=== PATIENT | male | born 1995 | race Two or more races ===

== ENCOUNTER 2024-03-03 12:46 | Outpatient (AMB) | payer OTHER, SELFPAY ==
[2024-03-03 12:48] VITALS: BP 120/82; BMI 37.1
--- NOTE | 2024-03-03 12:48 | A.OFFPC_ITS ---
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 Accompanied by: Staff Allergies No Known Allergies Allergy (Verified 03/03/24 13:11) Medication List - Last Reconciled 03/03/24 by Lindsey Mayberry MD acetaminophen ER (Tylenol 8 Hour) 650 mg PO Q12H PRN 30 days benztropine 2 mg PO BID chlorpromazine 0 mg PO chlorpromazine mg PO docusate sodium 100 mg PO BID 30 days oxcarbazepine 300 mg PO TID propranolol 20 mg PO BID quetiapine 0 mg PO Tobacco use date assessed: 03/03/24 Dental Screening Dental Screen Date: 03/03/24 Did you have a dental visit in the last 12 months?: No Did you have a dental problem in the last 6 months where you did not have access to dental care?: No Was dental information given to patient?: No HPI HPI Comments History of Present Illness Details This is a 28-year-old male with autism and mood disorder that comes accompanied by staff member from home that he lives for his physical exam. Mood disorder follow by Psychiatry and has been stable with medications. He has moderate developmental delay but is able to bathe himself and dress himself. No chest pain or shortness of breath. No change in bowel or bladder habits. FOR[facility]LY [facility], [facility] Medical History Encounter for physical examination Autism Mood disorder Obesity Constipation by delayed colonic transit Surgical History No pertinent past surgical history Family History Mother No problems noted. Social History Housing: Assisted Living Facility Alcohol intake: never Patient Tobacco Use Status: Never used Tobacco e-Cigarette/Vaping Use: Never Used Second Hand Smoke Exposure: No service: No Current occupational status: disabled Cognitive needs: No Hearing needs: No Vision needs: No Questionnaire PHQ-9 Over the last 2 weeks, how often have you been bothered by any of the following problems? 1. Little interest or pleasure in doing things: not at all 2. Feeling down, depressed, or hopeless: not at all 3. Trouble falling or staying asleep, or sleeping too much: not at all 4. Feeling tired or having little energy: not at all 5. Poor appetite or overeating: not at all 6. Feeling bad about yourself - or that you are a failure or have let yourself or your family down: not at all 7. Trouble concentrating on things, such as reading the newspaper or watching television: not at all 8. Moving or speaking so slowly that other people could have noticed. Or the opposite - being so fidgety or restless that you have been moving around a lot more than usual: not at all 9. Thoughts that you would be better off or of hurting yourself in some way: not at all Total score: 0 Depression Screening Interpretation: Negative Depression Screening Done: Yes 52460 - PHQ-9 Billing: Yes Source: Developed by Drs. Hieu Juarez, Ann Marie Talavera, Rodo Cordero and colleagues, with an educational lennox from [employer]. Thrive Questionnaire Date Thrive assessed: 03/03/24 I am a: Parent/Caregiver What is your living situation today?: I have a steady place to live Within the past 12 months, did the food you bought not last and you didn't have the money to get more?: Never true Within the past 12 months, did you worry whether your food would run out before you got money to buy more?: Never true Do you have trouble paying for medicines?: No Do you have trouble getting transportation to medical appointments?: No Do you have trouble paying your heating and electricity bill?: No Do you have trouble taking care of your child, family member or friend?: No Do you have trouble with day-to-day activities such as bathing, preparing meals, shopping, managing finances, etc.?: Yes Are you currently unemployed and looking for a job?: No Are you interested in more education?: No Please select the resources that you would like help with: None Currently or been in a relationship where the following occur: no concerns reported THRIVE Score: 0 AUDIT C Alcohol Use Questionnaire (AUDIT-C) 1. How often do you have a drink containing alcohol?: Never Total Score: 0 EMILY-7 AMB Questionnaire EMILY-7 Date EMILY - 7 assessed: 03/03/24 Feeling nervous, anxious, or on edge: 1 = Several days Not being able to stop or control worryin = Not at all Worrying too much about different things: 0 = Not at all Trouble relaxin = Not at all Being so restless that it is hard to sit still: 0 = Not at all Becoming easily annoyed or irritable: 1 = Several days Feeling afraid as if something awful might happen: 0 = Not at all Total EMILY-7 score (0-4 normal; 5-9 mild; 10-14 moderate; 15-21 severe): 2 Source: Developed by Drs. Hieu Juarez, Ann Marie Talavera, Rodo Cordero and colleagues, with an educational lennox from [employer]. EMILY-7 Assessment Billing EMILY-7 Assessment Tool: EMILY-7 Assessment 73168 Review of Systems Const All systems reviewed & are unremarkable except as noted in HPI and below Eyes Reports no additional complaints, Denies change in vision and Denies other visual disturbances Card Denies chest pain at rest, Denies chest pain with activity, Denies edema, Denies irregular heart rhythm, Denies claudication, Denies dyspnea, Denies dyspnea on exertion, Denies orthopnea, Denies paroxysmal nocturnal dyspnea and Denies slow heart rate Resp Denies cough, Denies dyspnea and Denies dyspnea on exertion GI Denies abdominal pain, Denies change in bowel habits, Denies excessive flatus, Denies nausea and Denies vomiting Denies urinary hesitancy, Denies urinary incontinence and Denies urinary urgency Musc Denies abnormal gait, Denies atrophy, Denies deformity and Denies limited range of motion Skin/Breast Denies bleeding lesions, Denies changing lesions and Denies rash Neuro Denies abnormal gait, Denies behavioral changes, Denies confusion and Denies lack of coordination Psych Denies behavioral changes and Denies confusion Physical exam (Primary Care) Vital Signs: Last Vital Signs BP 120/82 03/03/24 12:48 BMI result Body Mass Index 37.1 Tobacco/Smoking Status: Tobacco use Status Tobacco use date assessed 03/03/24 03/03/24 12:56 Patient Tobacco Use Status Never used Tobacco 03/03/24 12:56 e-Cigarette/Vaping Use Never Used 03/03/24 12:56 PHQ-9: PHQ-9 Score PHQ-9: Total score 0 03/03/24 13:16 Depression Screening Interpretation: Negative Thrive Assessment: Date of Thrive Assessment Date Thrive assessed 03/03/24 03/03/24 12:56 Currently or been in a relationship where the following occur: no concerns reported Const General: No confusion Orientation/consciousness: No confusion HENMT Head: Yes normal to inspection, Yes normocephalic and Yes atraumatic Ears: external ears normal Eyes General: appearance normal, both eyes and all related structures Eyelids: Yes eyelids normal Conjunctivae: conjunctivae normal Neck Neck: Yes normal visual inspection and Yes supple Resp Effort & Inspection: normal respiratory effort Auscultation: clear to auscultation bilaterally Cardio Jugular venous distension: no JVD Rate: regular rate Rhythm: regular rhythm Heart sounds: S1 normal heart sound present and S2 normal heart sound present GI Inspection: Yes normal to inspection Palpation (GI): Soft to palpation and nontender Auscultation: normal bowel sounds Skin General skin exam: no rashes or lesions noted Neuro General: no focal motor deficits and No confusion Extrem General: Yes full ROM Psych Appearance: grossly normal Assessment and Plan Assessment & Plan (1) Encounter for physical examination: Code(s): Z00.00 - Encounter for general adult medical examination without abnormal findings Plan: Repeat in a year. (2) Mood disorder: Code(s): F39 - Unspecified mood [affective] disorder Plan: Continue ox carbamazepine. Follow-up with psychiatry. Orders: Orders Comprehensive [place]. Panel Fast Today Z00.00 - Encounter for general adult medical examination without abnormal findings Lipid Panel Today Z00.00 - Encounter for general adult medical examination without abnormal findings Coding Level of Care Code Est Pt Prev Care 18-39y(75428) Diagnoses Encounter for physical examination Z00.00 Mood disorder F39 Additional Codes EMILY-7 Assessment Billing - EMIYL-7 Assessment Tool: EMILY-7 Assessment 43329 ([id number]) Time Spent (min) 33
== END 2024-03-03 13:28 | disposition home or self-care (01) ==
PROVIDERS: Visit Provider Internal Medicine
DX: Z00.00 Encounter for general adult medical examination without abnormal findings (principal); F84.0 Autistic disorder; F39 Unspecified mood [affective] disorder
CPT/HCPCS: 99395

== ENCOUNTER 2024-05-20 09:58 | Outpatient (REF) | payer OTHER, SELFPAY ==
[2024-05-20 11:13] LABS: Alanine Aminotransferase 127 U/L (0-40); Albumin Level 4.7 g/dL (3.5-5.0); Alkaline Phosphatase 78 U/L (39-117); Anion Gap 14 (12-20); Aspartate Amino Transferase 75 U/L (5-37); Bilirubin Total 0.4 mg/dL (0.0-1.0); Blood Urea Nitrogen 13 mg/dL (9-16); Calcium 9.5 mg/dL (8.4-10.2); Carbon Dioxide 23 mmol/L (22-29); Chloride 105 mmol/L (96-108); Cholesterol 201 mg/dL (<200); Estimated Glomerular Filt Rate > 60; Glucose Fasting 89 mg/dL (60-99); HDL Cholesterol 31 mg/dL (>40); LDL Cholesterol Calculated 121 mg/dL (<100); Potassium 4.2 mmol/L (3.3-5.1); Sodium 138 mmol/L (135-145); Total Protein 7.9 g/dL (6.5-8.0); Triglycerides 248 mg/dL (<150)
== END 2024-05-20 09:59 | disposition home or self-care (01) ==
LOC: HO.LAB 09:58
PROVIDERS: PCP Internal Medicine; Visit Provider Internal Medicine
DX: Z00.00 Encounter for general adult medical examination without abnormal findings (principal); R74.01 Elevation of levels of liver transaminase levels
CPT/HCPCS: 36415; 80053; 80061

== ENCOUNTER 2025-03-15 10:01 | Outpatient (AMB) | payer OTHER, SELFPAY ==
--- NOTE | 2025-03-15 10:12 | A.OFFPC_ITS ---
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 Accompanied by: staff Allergies No Known Allergies Allergy (Verified 03/15/25 10:31) Medication List - Last Reconciled 03/15/25 by Lindsey Mayberry MD acetaminophen ER (Tylenol 8 Hour) 650 mg PO Q12H PRN 30 days benztropine 2 mg PO BID chlorpromazine 0 mg PO chlorpromazine mg PO docusate sodium 100 mg PO BID 30 days oxcarbazepine 300 mg PO TID propranolol 20 mg PO BID quetiapine 0 mg PO Tobacco use date assessed: 03/15/25 Dental Screening Dental Screen Date: 03/03/24 Did you have a dental visit in the last 12 months?: No Did you have a dental problem in the last 6 months where you did not have access to dental care?: No Was dental information given to patient?: No HPI HPI Comments History of Present Illness Details The patient is a 29-year-old male presenting for a routine physical examination and health maintenance. His medical history includes Autism and a Mood Disorder, both managed with psychiatric input. He has a BMI of 38, which classifies him as having Class II obesity, signifying the need for weight control measures. Medications include acetaminophen (Tylenol), among others. No known drug allergies are noted. The patient's Tdap vaccination was last administered in 2013, necessitating a booster to maintain immunization schedules. His blood pressure readings have historically been good, and he reports no smoking or alcohol intake, contributing positively to his cardiovascular status. The patient experiences c onstipation but has not required surgical interventions. Laboratory assessments previously noted elevated cholesterol, and there is a plan to undertake fasting blood work for continued monitoring. - Administer Tdap booster to maintain up -to-date vaccination status. - Repeat fasting blood work with focus o n lipid profile to monitor elevated cholesterol levels. - Emphasize weight management strategies to address Class II obesity. [facility] Medical History Encounter for physical examination Autism Mood disorder Obesity Constipation by delayed colonic transit Surgical History No pertinent past surgical history Family History Mother No problems noted. Social History Housing: Assisted Living Facility Alcohol intake: never Patient Tobacco Use Status: Never used Tobacco e-Cigarette/Vaping Use: Never Used Second Hand Smoke Exposure: No service: No Current occupational status: disabled Cognitive needs: No Hearing needs: No Vision needs: No Questionnaire PHQ-9 Over the last 2 weeks, how often have you been bothered by any of the following problems? 1. Little interest or pleasure in doing things: not at all 2. Feeling down, depressed, or hopeless: not at all 3. Trouble falling or staying asleep, or sleeping too much: not at all 4. Feeling tired or having little energy: not at all 5. Poor appetite or overeating: not at all 6. Feeling bad about yourself - or that you are a failure or have let yourself or your family down: not at all 7. Trouble concentrating on things, such as reading the newspaper or watching television: not at all 8. Moving or speaking so slowly that other people could have noticed. Or the opposite - being so fidgety or restless that you have been moving around a lot more than usual: not at all 9. Thoughts that you would be better off or of hurting yourself in some way: not at all Total score: 0 Depression Screening Interpretation: Negative Depression Screening Done: Yes 86247 - PHQ-9 Billing: Yes Source: Developed by Drs. Hieu Juarez, Ann Marie Talavera, Rodo Cordero and colleagues, with an educational lennox from [employer]. Thrive Questionnaire Date Thrive assessed: 03/15/25 I am a: Patient What is your living situation today?: I choose not to answer this question Within the past 12 months, did the food you bought not last and you didn't have the money to get more?: I choose not to answer this question Within the past 12 months, did you worry whether your food would run out before you got money to buy more?: I choose not to answer this question Do you have trouble paying for medicines?: I choose not to answer this question Do you have trouble getting transportation to medical appointments?: I choose not to answer this question Do you have trouble paying your heating and electricity bill?: I choose not to answer this question Do you have trouble taking care of your child, family member or friend?: I choose not to answer this question Do you have trouble with day-to-day activities such as bathing, preparing meals, shopping, managing finances, etc.?: I choose not to answer this question Are you currently unemployed and looking for a job?: I choose not to answer this question Are you interested in more education?: I choose not to answer this question Please select the resources that you would like help with: None Currently or been in a relationship where the following occur: I choose not to answer THRIVE Score: 0 AUDIT C Alcohol Use Questionnaire (AUDIT-C) 1. How often do you have a drink containing alcohol?: Never Total Score: 0 Score Reviewed/Action Taken: No EMILY-7 AMB Questionnaire EMILY-7 Date EMILY - 7 assessed: 03/15/25 Feeling nervous, anxious, or on edge: 0 = Not at all Not being able to stop or control worryin = Not at all Worrying too much about different things: 0 = Not at all Trouble relaxin = Not at all Being so restless that it is hard to sit still: 0 = Not at all Becoming easily annoyed or irritable: 0 = Not at all Feeling afraid as if something awful might happen: 0 = Not at all Total EMILY-7 score (0-4 normal; 5-9 mild; 10-14 moderate; 15-21 severe): 0 Source: Developed by Drs. Hieu Juarez, Ann Marie Talavera, Rodo Cordero and colleagues, with an educational lennox from [employer]. EMILY-7 Assessment Billing EMILY-7 Assessment Tool: EMILY-7 Assessment 52941 Review of Systems Const All systems reviewed & are unremarkable except as noted in HPI and below Card Denies chest pain at rest, Denies chest pain with activity, Denies edema, Denies irregular heart rhythm, Denies claudication, Denies dyspnea, Denies dyspnea on exertion, Denies orthopnea, Denies paroxysmal nocturnal dyspnea and Denies slow heart rate Resp Denies cough, Denies dyspnea and Denies dyspnea on exertion GI Denies abdominal pain, Denies change in bowel habits, Denies excessive flatus, Denies nausea and Denies vomiting Denies urinary hesitancy, Denies urinary incontinence and Denies urinary urgency Neuro Denies behavioral changes and Denies lack of coordination Psych Denies behavioral changes Physical exam (Primary Care) Vital Signs: Last Vital Signs BP 122/80 03/15/25 10:15 BMI result Body Mass Index 38.4 BMI Assessment/Plan discussion: High BMI High, discussed plan: lifestyle, weight reduction, dietary and physical activity Tobacco/Smoking Status: Tobacco use Status Tobacco use date assessed 03/15/25 03/15/25 10:21 Patient Tobacco Use Status Never used Tobacco 03/15/25 10:15 e-Cigarette/Vaping Use Never Used 03/15/25 10:15 PHQ-9: PHQ-9 Score PHQ-9: Total score 0 03/15/25 10:49 Depression Screening Interpretation: Negative Thrive Assessment: Date of Thrive Assessment Date Thrive assessed 03/15/25 03/15/25 10:15 Currently or been in a relationship where the following occur: I choose not to answer HENOR Head: Yes normal to inspection, Yes normocephalic and Yes atraumatic Ears: external ears normal Eyes General: appearance normal, both eyes and all related structures Eyelids: Yes eyelids normal Conjunctivae: conjunctivae normal Neck Neck: Yes normal visual inspection and Yes supple Resp Effort & Inspection: normal respiratory effort Auscultation: clear to auscultation bilaterally Cardio Jugular venous distension: no JVD Rate: regular rate Rhythm: regular rhythm Heart sounds: S1 normal heart sound present and S2 normal heart sound present GI Inspection: Yes normal to inspection Palpation (GI): Soft to palpation and nontender Auscultation: normal bowel sounds Skin General skin exam: no rashes or lesions noted Neuro General: no focal motor deficits Extrem General: Yes full ROM Psych Appearance: grossly normal Immunizations Boostrix Tdap 2.5 Lf unit-8 mcg-5 Lf/0.5 mL intramuscular syringe Performing Provider: Lindsey Mayberry MD Performing Location: [facility] Administered by: ELAINA Sapp on 03/15/25 10:41 Dose Route Admin Location Dispensed Lot Number Expiration Date [facility] Wedding Day Coordinator 0.5 mL IM Left Deltoid 0.5 mL [id number] 07/20/27 02847-683-72 [facility] VIS Given Date VIS Provided VIS Publication Date 03/15/25 Single Vaccine 24 Eligibility Eligibility Date Funding Source Not [facility] Eligible 03/15/25 Private Coding Level of Care Code Est Pt Prev Care 18-39y(49679) Diagnoses Encounter for physical examination Z00.00 Mood disorder F39 Additional Codes EMILY-7 Assessment Billing - EMILY-7 Assessment Tool: EMILY-7 Assessment 58080 ([id number]) PHQ-9 - 87012 - PHQ-9 Billing: Yes ([id number]) Time Spent (min) 30 Assessment & Plan Assessment & Plan (1) Encounter for physical examination: Code(s): Z00.00 - Encounter for general adult medical examination without abnormal findings Category: Medical (2) Mood disorder: Code(s): F39 - Unspecified mood [affective] disorder Category: Medical Plan The patient was advised to receive a Tdap booster, given it is due. We have reiterated the need for weight management to address his Class II obesity. The continuation of the current medication regimen, including acetaminophen, remains suitable as there are no allergies. We note good blood pressure control, eliminating the need for hypertensive medications at this time. Repeat fasting cholesterol tests will be conducted to provide direction for managing his elevated levels. Psychiatric conditions are well-managed under existing care, without surgical history or substance use impacting health. The continuation of current interventions will be closely monitored, and lifestyle adjustment support is encouraged. Patient was informed and verbally consented to the use of an ambient scribe for clinic note documentation during this visit. I discussed with the patient the necessity of updating immunizations, specifica lly receiving a Tdap booster today, which is part of standard health maintenance. We reviewed the need for lifestyle changes concerning weight management as his BMI indicates Class II obesity. I explained the implications of repeated elevated cholesterol and the importance of subsequent testing to tailor appropriate interventions. The impact of his non-smoking and [id number] lifestyle was positively noted. Collaborative management with his psychiatrist for his autism and mood disorder is appropriate, and I assured continuity of care. I addressed the stable blood pressure management and the current medication plan, reinforcing adherence to prescribed medications. Follow-up consultations will ensure progress and accommodate any concerns regarding ongoing treatment or emerging symptoms. Orders: Orders TDaP Immunization Today Z23 - Encounter for immunization Patient Instructions: - Receive the Tdap vaccine today. - Follow recommendations for weight management plan to address obesity. - Continue current medications as prescribed. - Schedule and complete fasting blood work to re-evaluate cholesterol levels. - Maintain communication with psychiatric care provider. - Avoid alcohol and tobacco products.
[2025-03-15 10:15] VITALS: BP 122/80; BMI 38.4
== END 2025-03-15 10:46 | disposition home or self-care (01) ==
LOC: HO.HMCH 10:02
PROVIDERS: PCP Internal Medicine; Visit Provider Internal Medicine
DX: Z00.00 Encounter for general adult medical examination without abnormal findings (principal); F39 Unspecified mood [affective] disorder; Z23 Encounter for immunization

== ENCOUNTER → 2025-03-15 10:01 | Outpatient (BNVA) | payer OTHER, SELFPAY | PROVIDERS: PCP Internal Medicine; Visit Provider Internal Medicine | DX: Z00.00 Encounter for general adult medical examination without abnormal findings (principal); Z23 Encounter for immunization; F39 Unspecified mood [affective] disorder | CPT/HCPCS: 90471; 90715; 96127; 99395 ==